=== PATIENT | male | born 1985 | race Caucasian/White ===

== ENCOUNTER 2019-08-17 18:12 | Emergency (ER) | payer MEDICAID ==
[~2019-08-17] VITALS: Ht 175.3 cm; Wt 85.0 kg
[2019-08-17 18:24] VITALS: Ht 175.3 cm; Wt 85.0 kg
[2019-08-17] MEDS ORDERED: CYMBALTA60 MG PO (20:57)
[2019-08-17] MEDS ORDERED: TRILEPTAL300 MG PO ×2 (20:58→21:14)
[2019-08-17] MEDS ORDERED: CYMBALTA30 MG PO (21:04)
[2019-08-17] MEDS ORDERED: GEODON80 MG PO (21:07)
[2019-08-17] MEDS ORDERED: MINIPRESS 5 MG C5 MG PO (21:08)
[2019-08-17] MEDS ORDERED: SEROQUEL100 MG PO (21:12)
[2019-08-17] MEDS ORDERED: VISTARIL50 MG PO (21:13)
[2019-08-17] MEDS ORDERED: IMIPRAMINE10 MG PO (21:14)
[2019-08-17] MEDS ORDERED: BUSPAR 15 MG TA15 MG PO (21:15)
[2019-08-17] MEDS ORDERED: VISTARIL25 MG PO (21:15)
[2019-08-17] MEDS ORDERED: HALDOL5 MG PO (21:16)
[2019-08-17] MEDS ORDERED: EC-NAPROSYN500 MG PO (21:16)
[2019-08-17] MEDS ORDERED: GEODON40 MG PO (21:16)
[2019-08-17 23:35] VITALS: BP 125/89
== END 2019-08-17 23:39 ==
LOC: D.ER 18:12
DX: G24.9 Dystonia, unspecified (principal); F31.9 Bipolar disorder, unspecified; F20.9 Schizophrenia, unspecified; R45.851 Suicidal ideations; G43.909 Migraine, unspecified, not intractable, without status migrainosus; M62.838 Other muscle spasm